=== PATIENT | male | born 1960 | race African-American/Black ===

== ENCOUNTER 2019-02-27 21:50 | Emergency (ER) | payer OTHER ==
[~2019-02-27] VITALS: Ht 180.3 cm; Wt 72.6 kg
[2019-02-27 21:50] VITALS: BP 159/90
--- NOTE | 2019-02-27 21:50 | NUR ---
ED Nurse Note: ARRIVED WITH [facility] DUE TO MECHANICAL FALL PT C/O OF RIGHT HIP PAIN. PT RECEIVED 100MCG FENTANYL. AO4. NAD. VSS. IV PRESENT; ESTABLISHED FIGURE SKATER.
--- NOTE | 2019-02-27 21:59 | Emergency Room Report ---
History of Present Illness General Chief Complaint: Multiple Trauma/Fall Source: Patient Present Illness HPI This is a 58-year-old male with history of schizophrenia and degenerative right hip disease. He said he needs a hip replacement. He is currently on pain medication for the severe arthritis of his right hip. He had a mechanical fall and complained of right hip pain. Unable to get up. He was bending over to pull up some the rug area. He said he had severe pain in the hip gave out. He said he fell down. Unable to get up. Pain is 10 out of 10. Better with rest. Worse with movement. No radiation. No head injury. Did not pass out. Similar symptom in the past. Allergies: Coded Allergies: No Known Allergies (Unverified , 02/27/19) Patient History Past Medical History: see triage record, old chart reviewed, psych hx Past Surgical History: other Pertinent Family History: none Social History: Reports: smoking Immunizations: other Reviewed Nursing Documentation: PMH: Agreed; PSxH: Agreed Nursing Documentation-PMH Past Medical History: No History, Except For Hx Hypertension: Yes History Of Psychiatric Problem: Yes Review of Systems Eye: Denies: eye pain, blurred vision ENT: Denies: ear pain, nose congestion, throat swelling Respiratory: Denies: cough, shortness of breath Cardiovascular: Denies: chest pain, palpitations Gastrointestinal: Denies: abdominal pain, diarrhea, nausea, vomiting Musculoskeletal: Reports: joint pain; Denies: back pain Skin: Denies: rash Neurological: Denies: headache, numbness Endocrine: Denies: increased thirst, increased urine Hematologic/Lymphatic: Denies: easy bruising All Other Systems: negative except mentioned in HPI Physical Exam Vital Signs Date Time Temp Pulse Resp B/P (MAP) Pulse Ox O2 Delivery O2 Flow Rate FiO2 02/27/19 21:46 97.5 106 19 159/90 (113) 96 Vitals with high blood pressure Sp02 EP Interpretation: reviewed, normal General Appearance: well appearing, no apparent distress, alert Head: normocephalic, atraumatic Eyes: bilateral eye PERRL, bilateral eye EOMI ENT: hearing grossly normal, normal pharynx Neck: full range of motion, supple, no meningismus Respiratory: chest non-tender, lungs clear, normal breath sounds Cardiovascular #1: regular rate, rhythm, no murmur Gastrointestinal: normal bowel sounds, non tender, no mass, no organomegaly, no bruit, non-distended Musculoskeletal: back normal, normal range of motion, other - Tenderness to right hip. No deformity. Sensation normal. Psychiatric: mood/affect normal Medical Decision Making Diagnostic Impression: Primary Impression: Degenerative joint disease of right hip Qualified Codes: M16.11 - Unilateral primary osteoarthritis, right hip ER Course Patient presents with right hip pain status post fall. No fracture dislocation. He does have degenerative changes. This is a chronic issue and was told that he needed hip replacement. No evidence of septic joint. Will discharge home. CT/MRI/US Diagnostic Results CT/MRI/US Diagnostic Results : Imaging Test Ordered: CT abdomen and pelvis Impression Read by radiologist. No frx or dislocation. Degenerative changes. Last Vital Signs Date Time Temp Pulse Resp B/P (MAP) Pulse Ox O2 Delivery O2 Flow Rate FiO2 02/27/19 21:46 97.5 106 19 159/90 (113) 96 Status: improved Disposition: HOME, SELF-CARE Condition: Stable Scripts Ibuprofen* (MOTRIN*) 600 Mg Tablet 600 MG ORAL THREE TIMES A DAY, #30 TAB 0 Refills Prov: August Osorio MD 02/28/19 Hydrocodone/Acetaminophen 5-325* (HYDROCODONE/ACETAMINOPHEN 5-325*) 1 Each Tablet 1 TAB ORAL Q6H PRN for For Pain, #20 TAB 0 Refills Prov: August Osorio MD 02/28/19 Additional Instructions: Follow-up with your doctor in 7 days. You may need referral to see the pain specialist. Return if symptoms worsen. August Osorio MD Feb 27, 2019 21:59
--- NOTE | 2019-02-27 23:55 | Diagnostic Imaging Report ---
Indication: Right hip pain for one day, trauma Technique: Noncontrast spiral acquisitions obtained through the right hip Multiplanar reconstructions were generated. Total dose length product 1332 mGycm. CTDIvol(s) 36 mGy. Radiation dose was minimized using automated exposure control Comparison: none Findings: There are fairly extensive degenerative changes of the right hip, with extensive subchondral cyst formation on both sides of the joint, narrowing of the joint space, and some subchondral sclerosis and osteophyte formation. No acute fracture demonstrated. No dislocations. No significant soft tissue contusion. The included pelvic viscera are unremarkable. Impression: Degenerative changes, as described. No acute bony trauma The CT scanner at [facility] is accredited by the [employer] and the scans are performed using protocols designed to limit radiation exposure to as low as reasonably achievable to attain images of sufficient resolution adequate for diagnostic evaluation.
[2019-02-28] VITALS: BP 148/88
[2019-02-28] MEDS ORDERED: HYDROCODON-ACE1 EA15 ORAL (00:33)
[2019-02-28] MEDS ORDERED: IBUPROFEN600 MG ORAL (00:33)
[2019-02-28 01:45] VITALS: BP 159/90
--- NOTE | 2019-02-28 01:45 | NUR ---
ER DISCHARGE NOTE: Patient is cleared to be discharged per ERMD, pt is aox4, on room air, with stable vital signs. pt was given dc and prescription instructions, pt was able to verbalize understanding, pt id band and iv site removed without complications. pt is able to ambulate with steady gait. pt took all belongings.
== END 2019-02-28 01:45 | disposition home or self-care (01) ==
LOC: EDBD 21:50 → EMR 23:18
DX: M16.11 Unilateral primary osteoarthritis, right hip (principal); F17.200 Nicotine dependence, unspecified, uncomplicated; I10 Essential (primary) hypertension
CPT/HCPCS: 73700; 96374; J1170; Z7502; 99284